=== PATIENT | male | born 1970 | race American Indian/Alaskan Native ===

== ENCOUNTER 2020-09-19 19:52 | Emergency (ER) | payer SELFPAY ==
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
[2020-09-20] MEDS ORDERED: ACETAMINOPHEN 500 MG TAB PO ONE (00:10)
[2020-09-20] MEDS ORDERED: CYCLOBENZAPRINE 10 MG TAB PO ONE (00:10)
[2020-09-20] MEDS ORDERED: IBUPROFEN 600 MG TAB PO ONE (00:10)
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
[2020-09-20 01:39] VITALS: BP 125/72
== END 2020-09-20 01:38 | disposition home or self-care (01) ==
LOC: ED 19:52
DX: S20.212A Contusion of left front wall of thorax, initial encounter (principal); M62.830 Muscle spasm of back; M62.838 Other muscle spasm; I10 Essential (primary) hypertension; E78.00 Pure hypercholesterolemia, unspecified; E11.9 Type 2 diabetes mellitus without complications; F17.200 Nicotine dependence, unspecified, uncomplicated; Z79.899 Other long term (current) drug therapy; V89.2XXA Person injured in unspecified motor-vehicle accident, traffic, initial encounter; Y93.89 Activity, other specified; Y92.410 Unspecified street and highway as the place of occurrence of the external cause; Y99.8 Other external cause status
CPT/HCPCS: 70450; 72040; 72125; 72128